=== PATIENT | male | born 1940 | race Caucasian/White ===

== ENCOUNTER 2016-05-25 19:11 | Emergency (ER) | payer MEDICARE ==
[~2016-05-25] VITALS: Ht 170.2 cm; Wt 68.6 kg
[~2016-05-25 19:11] MED LIST: BACT800T5 PO; CELE200 PO; FLON0.053; LORTA5 PO; PROT40TA PO
[2016-05-25 19:14] VITALS: BP 188/86; PULSE 66; RESP 16; TEMP 97.7; O2SAT 97
--- NOTE | 2016-05-25 20:00 | PD ---
Physical Exam Time Seen by Provider: 19:58 Narrative 76 year old male with history significant for 64 kidney stones presents to ED for evaluation of R flank pain, sharp stabbing, 10/10 that began 6 hours ago. Pain is consistent with past stones, but pt has had one in 5 years and this "is pretty bad." Denies fever or chills. No nausea or vomiting, but he is anticipating this. He otherwise has no significant medical history and is not taking any medication. Data Data Last Documented VS Vital Signs Date Time Temp Pulse Resp B/P Pulse Ox O2 Delivery O2 Flow Rate FiO2 05/25/16 19:14 97.7 66 16 188/86 97 MDM Medical Record Reviewed: Yes Supervised Visit with LINO: No Narrative Course 76 year old male presents to ED for evaluation of R flank pain. Appears moderately uncomfortable but without distress. BP is elevated, but overall VSS. Condition: Stable Alis Ramos May 25, 2016 20:00
--- NOTE | 2016-05-25 21:42 | PD ---
HPI Chief Complaint: Flank/Kidney Pain Time Seen by Provider: 21:24 Travel History International Travel<30 days: No Contact w/Intl Traveler<30days: No Traveled to known affect area: No History of Present Illness HPI The patient is a 76 year old female who presents to the [facility] emergency department with a history of right flank pain that he reports began at approximately noon today. The patient reports that it is his usual kidney stone pain. He reports that he has passed 64 kidney stones in the past. His urologist is Dr. Gannon. He last saw his urologist a week ago. He reports that at that time he was told that he had some stones retained up in the right kidney. He reports that in the past he has undergone ureteral stent placement and removal as well as lithotripsy. He denies having any nausea or vomiting associated with this. He has been moving his bowels regularly. His last bowel movement was earlier today. He reports the pain is constant and a 10 out of 10 in severity. He reports the pain is sharp in character and radiates down into the right side of his pelvis. He denies having any dysuria, urinary frequency, or urinary urgency. He denies having any noted hematuria. He denies having any fevers or chills. I review systems, the patient denies any cough, congestion, neck pain, chest pain, shortness of breath, or neurologic symptoms. [facility] Past Medical History Narrative Medical The patient's past medical history is significant for recurrent kidney stones, low back pain, hypothyroid disorder, benign prostatic hypertrophy, allergic rhinitis. Diminished Hearing: No Kidney Stones: Yes (62 TO DATE) Past Surgical History Narrative Surgical The patient's past surgical history is significant for hernia repair, prostate surgery, lithotripsy, ureteral placement and removal, appendectomy, cataract surgery. Abdominal Surgery: Yes (DOUBLE HERNIA) Appendectomy: Yes Genitourinary Surgery: Yes (MULTIPLE CYSTOSCOPES FOR KIDNEY STONES) Social History Alcohol Use: No Tobacco Use: No Substance Use: No Allergies-Medications (Allergen,Severity, Reaction): Coded Allergies: Procaine (Verified Allergy, Intermediate, 05/25/16) Reported Meds & Prescriptions Reported Meds & Active Scripts Active Flomax (Tamsulosin HCl) 0.4 Mg Cap 0.4 Mg PO HS Lortab (Hydrocodone-Acetaminophen) 7.5-325 Mg Tab 1 Tab PO Q4-6H PRN Reported [place] (Hydrocodone-Acetaminophen) 5-325 mg Tab 1 Tab PO Q6H PRN Pantoprazole (Pantoprazole Sodium) 40 Mg Tab 40 Mg PO DAILY Flonase Nasal [place] (Fluticasone Nasal [place]) 50 Mcg/Act [place] 50 Mcg EACH NARE BID Celebrex (Celecoxib) 200 Mg Cap 200 Mg PO BID Narrative Medication Tramadol, Aleve, thyroid supplement, Flonase Review of Systems Except as stated in HPI: all other systems reviewed are Neg General / Constitutional: No: Fever Eyes: No: Visual changes HENT: No: Headaches Cardiovascular: No: Chest Pain or Discomfort Respiratory: No: Shortness of Breath Gastrointestinal: Positive: Abdominal Pain, No: Nausea, Vomiting, Diarrhea, Hematemesis, Hematochezia, Constipation, Changes in Bowel Habits, Indigestion, Loss of Appetite Genitourinary: Positive: Flank Pain (right flank pain), No: Urgency, Frequency , Dysuria Musculoskeletal: No: Pain Skin: No Rash Neurologic: No: Weakness, Focal Abnormalities, Change in Mentation, Slurred Speech, Sensory Disturbance Psychiatric: No: Depression Endocrine: No: Polydipsia Hematologic/Lymphatic: No: Easy Bruising Physical Exam Narrative General: The patient is a well-developed well-nourished male in no acute distress. Head and Neck exam: Head is normocephalic atraumatic. Eyes: EOMI, pupils are equal round and reactive to light. Nose: Midline septum with pink mucous membranes Mouth: Dentition unremarkable. Moist mucus membranes. Posterior oropharynx is not erythematous. No tonsillar hypertrophy. Uvula midline. Airway patent. Neck: No palpable lymphadenopathy. No nuchal rigidity. No thyromegaly. Cardiovascular: Regular rate and rhythm without murmurs, gallops, or rubs. Lungs: Clear to auscultation bilaterally. No wheezes, rhonchi, or rales. Abdomen: Soft, with discomfort on palpation down in the right lower pelvis, no other tenderness on palpation of McBurney's point or other quadrants of the abdomen. No guarding, rebound, or rigidity. Normal bowel sounds are audible. Extremities: No clubbing, cyanosis, or edema. No calf tenderness on palpation. Back: No spinous process tenderness to palpation. Right-sided CVA tenderness on palpation. Neurologic Exam: Grossly nonfocal. Skin Exam: No rash noted. Intact skin that is warm and dry. Data Data Last Documented VS Vital Signs Date Time Temp Pulse Resp B/P Pulse Ox O2 Delivery O2 Flow Rate FiO2 05/25/16 22:00 89 18 163/78 96 05/25/16 19:14 97.7 Orders Complete Blood Count With Diff (05/25/16 21:33) Basic Metabolic Panel (Bmp) (05/25/16 21:33) Urinalysis - C+S If Indicated (05/25/16 21:33) Ct Abd/Pel W/O Iv Contrast (05/25/16 21:33) Iv Access Insert/Monitor (05/25/16 21:33) Ecg Monitoring (05/25/16 21:33) Oximetry (05/25/16 21:33) Sodium Chlorid 0.9% 500 Ml Inj (Ns 500 M (05/25/16 21:45) Morphine Inj (Morphine Inj) (05/25/16 21:45) Ondansetron Inj (Zofran Inj) (05/25/16 21:45) Ketorolac Inj (Toradol Inj) (05/25/16 21:45) Labs Laboratory Tests Test 05/25/16 21:45 White Blood Count 9.1 TH/MM3 Red Blood Count 4.78 MIL/MM3 Hemoglobin 12.9 GM/DL Hematocrit 39.7 % Mean Corpuscular Volume 83.0 FL Mean Corpuscular Hemoglobin 26.9 PG Mean Corpuscular Hemoglobin 32.4 % Concent Red Cell Distribution Width 13.7 % Platelet Count 138 TH/MM3 Mean Platelet Volume 8.4 FL Neutrophils (%) (Auto) 79.0 % Lymphocytes (%) (Auto) 12.1 % Monocytes (%) (Auto) 7.0 % Eosinophils (%) (Auto) 1.1 % Basophils (%) (Auto) 0.8 % Neutrophils # (Auto) 7.2 TH/MM3 Lymphocytes # (Auto) 1.1 TH/MM3 Monocytes # (Auto) 0.6 TH/MM3 Eosinophils # (Auto) 0.1 TH/MM3 Basophils # (Auto) 0.1 TH/MM3 CBC Comment DIFF FINAL Differential Comment Urine Color YELLOW Urine Turbidity CLEAR Urine pH 6.0 Urine Specific [place] 1.022 Urine Protein TRACE mg/dL Urine Glucose (UA) NEG mg/dL Urine Ketones 10 mg/dL Urine Occult Blood MOD Urine Nitrite NEG Urine Bilirubin NEG Urine Urobilinogen LESS THAN 2.0 MG/DL Urine Leukocyte Esterase NEG Urine RBC 107 /hpf Urine WBC 1 /hpf Urine Squamous Epithelial <1 /hpf Cells Urine Mucus FEW /lpf Microscopic Urinalysis Comment CULT NOT INDICATED Sodium Level 138 MEQ/L Potassium Level 3.9 MEQ/L Chloride Level 105 MEQ/L Carbon Dioxide Level 23.7 MEQ/L Anion Gap 9 MEQ/L Blood Urea Nitrogen 24 MG/DL Creatinine 1.44 MG/DL Estimat Glomerular Filtration 47 ML/MIN Rate Random Glucose 112 MG/DL Calcium Level 9.1 MG/DL [facility] Medical Decision Making Medical Screen Exam Complete: Yes Emergency Medical Condition: Yes Medical Record Reviewed: Yes Interpretation(s) Last Impressions Abdomen/Pelvis CT 05/25/162132 Signed Impressions: Service Date/Time: Wednesday, May 25, 2016 21:57 - CONCLUSION: 1. 3 x 4 by 8mm stone in the mid right ureter causing moderate severity obstructive uropathy. 2. There are nonobstructing stones and benign appearing cysts of both kidneys. Please see above. 3. Scattered hypodensities of the liver that are most likely cysts. Misael Oshea MD Differential Diagnosis Ureteral calculi, versus renal colic, versus pyelonephritis, versus appendicitis , versus diverticulitis, versus musculoskeletal strain Narrative Course During the course of the patients emergency department visit, the patients history, examination, and differential diagnosis were reviewed with the patient. The patient had IV access obtained and blood work sent for analysis. The patient was placed on a telemetry monitor with oximetry and blood pressure monitoring. A CT scan of the abdomen and pelvis has been ordered without IV contrast. The patient was initially provided normal saline a 500 mL bolus, Toradol 15 mg IV, morphine 2 mg IV, Zofran 4 mg IV. The patients laboratory studies were reviewed and remarkable for a white count of 9.1, hemoglobin 12.9, platelets 138 with 79 neutrophils, urinalysis shows 10 ketones moderate occult blood 107 RBCs 1 WBC, culture not indicated. Basic metabolic profile is remarkable for a BUN of 24, creatinine 1.44, glucose 112. The patient was given a second normal saline IV fluid bolus. The patient was reexamined and resting comfortably. Radiology studies were reviewed and remarkable for CT scan of the abdomen and pelvis that shows a 3 x 4 x 8 mm stone in the mid right ureter causing moderate severity obstructive uropathy. There are nonobstructing stones and benign appearing cysts of both kidneys, scattered hypodensities of the liver that are most likely cysts. The patient will be discharged home on Flomax, Lortab. The patient was instructed to call his urologist in the morning to discuss close follow-up, as given the size of the stone that is obstructing the patient will likely need lithotripsy or other intervention for removal. The patient is resting comfortably and feels better, is alert and in no distress. The patients results and examination findings were discussed with the patient. The repeat examination is unremarkable and benign. The history, exam, diagnostic testing, and current condition do not suggest any significant pathology to warrant further testing, continued ED treatment, admission, or surgical evaluation at this point. The vital signs have been stable. The patient does not have uncontrollable pain, intractable vomiting, or other significant symptoms. The patient's condition is stable and appropriate for discharge. The patient will pursue further outpatient evaluation with a primary care physician or other designated or consulting physician as indicated in the discharge instructions. The patient expressed understanding and was agreeable with this plan. Diagnosis Primary Impression: Acute right flank pain Additional Impression: Right ureteral calculus Referrals: Abhishek Gannon MD 1 day Patient Instructions: General Instructions, Kidney Stones (ED) Med/Other Pt SpecificInfo: Prescription(s) given Scripts Tamsulosin (Flomax)0.4 Mg Cap0.4 Mg PO HS #14 CAP Ref 0 Prov:Priya Maldonado MD 05/25/16 Hydrocodone-Acetaminophen (Lortab)7.5-325 Mg Tab1 Tab PO Q4-6H PRN (PAIN) #16 TAB Ref 0 Prov:Priya Maldonado MD 05/25/16 Disposition: 01 DISCHARGE HOME Condition: Stable Priya Maldonado MD May 25, 2016 21:42
[2016-05-25] MEDS ORDERED: ONDANSETRON HCL 4 MG/2 ML VIAL IV PUSH ONE (21:45)
[2016-05-25] MEDS ORDERED: MORPHINE SULFATE 4 MG/ML INJ IV PUSH ONE (21:45)
[2016-05-25] MEDS ORDERED: KETOROLAC TROMETHAMINE 30 MG/ML (IVP) VIAL IV PUSH ONE (21:45)
[2016-05-25] MEDS ORDERED: SODIUM CHLORID 0.9% 500 ML INJ 500 ML IV ONE ×2 (21:45→23:15)
[2016-05-25] MEDS ORDERED: NORC5TAB PO (21:59)
[2016-05-25] MEDS ORDERED: FLUT1SPR5 EACH NARE (21:59)
[2016-05-25] MEDS ORDERED: CELE200C PO (21:59)
[2016-05-25] MEDS ORDERED: PANT40TA3 PO (21:59)
[2016-05-25 22:00] VITALS: BP 163/78; PULSE 89; RESP 18; O2SAT 96
--- NOTE | 2016-05-25 22:21 | RADRPT ---
EXAM DATE/TIME: 05/25/2016 21:57 [place] COMPARISON: No previous studies available for comparison. INDICATIONS : Right flank pain. ORAL CONTRAST: No oral contrast ingested. RADIATION DOSE: 6.41 CTDIvol (mGy) MEDICAL HISTORY : Hernia, umbilical. Hernia, inguinal. Renal calculi. SURGICAL HISTORY : Umbilical hernia repair. Appendectomy. ENCOUNTER: Initial ACUITY: 1 day PAIN SCALE: 7/10 LOCATION: Right flank TECHNIQUE: Volumetric scanning of the abdomen and pelvis was performed. Using automated exposure control and ad justment of the mA and/or kV according to patient size, radiation dose was kept as low as reasonably achievable to obtain optimal diagnostic quality images. FINDINGS: LOWER LUNGS: The visualized lower lungs are clear. LIVER: There are hypodensities measuring 18 mm of the left hepatic lobe and 14 mm, 13 mm and 8 mm of the rig ht hepatic lobe. These are most likely cysts. No ductal dilatation. SPLEEN: Normal size without lesion. PANCREAS: Within normal limits. KIDNEYS: A 3 x 4 by 8mm stone is seen in the right ureter at the level of L5. There is moderate hydronephrosis and hydroureter. There is also right perinephric edema. There are faint sub-3 mm nonobstructing ston es scattered throughout the right kidney. A more dominant stone is seen of the right mid zone, measur es about 3 x 6 mm in size. A 3 mm upper pole stone and several 2 mm or less faint stones are seen sca ttered of the left kidney, all nonobstructing. Bilateral renal cysts are present measuring up to 2 cm in size. ADRENAL GLANDS: Within normal limits. VASCULAR: There is no aortic aneurysm. BOWEL/MESENTERY: The stomach, small bowel, and colon demonstrate no acute abnormality. There is no free intraperitone al air or fluid. ABDOMINAL WALL: Within normal limits. RETROPERITONEUM: There is no lymphadenopathy. BLADDER: No wall thickening or mass. REPRODUCTIVE: Within normal limits. INGUINAL: Previous hernia repair. No recurrent hernia demonstrated. MUSCULOSKELETAL: No acute bony abnormality demonstrated. CONCLUSION: 1. 3 x 4 by 8mm stone in the mid right ureter causing moderate severity obstructive uropathy. 2. There are nonobstructing stones and benign appearing cysts of both kidneys. Please see above. 3. Scattered hypodensities of the liver that are most likely cysts. Miasel Oshea MD on May 25, 2016 at 22:14 Board Certified Radiologist. This report was verified electronically.
[2016-05-25 22:26] LABS: AUTOMATED NEUTROPHIL # 7.2 TH/MM3 (1.8-7.7); BASOPHIL # 0.1 TH/MM3 (0-0.2); BASOPHIL % 0.8 % (0.0-2.0); EOSINOPHIL # 0.1 TH/MM3 (0-0.4); EOSINOPHIL % 1.1 % (0.0-4.0); HEMATOCRIT 39.7 % (39.0-51.0); HEMO FLAGS DIFF FINAL; LYMPH % 12.1 % (9.0-44.0); LYMPHOCYTE # 1.1 TH/MM3 (1.0-4.8); MEAN CORPUSCULAR HEMOGLOBIN 26.9 PG (27.0-34.0); MEAN CORPUSCULAR HGB CONC 32.4 % (32.0-36.0); PLATELET COUNT 138 TH/MM3 (150-450); RED BLOOD COUNT 4.78 MIL/MM3 (4.50-5.90); RED CELL DISTRIBUTION WIDTH 13.7 % (11.6-17.2); WHITE BLOOD COUNT 9.1 TH/MM3 (4.0-11.0)
[2016-05-25 22:30] LABS: BLOOD, URINE MOD (NEG); COMMENT (UR) CULT NOT INDICATED; CULTURE IF INDICATED CULT NOT INDICATED; GLUCOSE,URINE NEG (NEG); KETONE, URINE 10 mg/dL (NEG); MUCUS URINE FEW /lpf (OCC); NITRITE,URINE NEG (NEG); SQUAMOUS EPITHELIAL CELL URINE <1 /hpf (0-5); URINE COLOR YELLOW (YELLW/STRAW)
[2016-05-25] MEDS ORDERED: TAMS5CAP PO (22:35)
[2016-05-25] MEDS ORDERED: HYDR-3534 PO (22:35)
[2016-05-25 22:44] LABS: BICARBONATE 23.7 MEQ/L (21.0-32.0); POTASSIUM 3.9 MEQ/L (3.5-5.1)
[2016-05-26] VITALS: BP 174/80; PULSE 70; RESP 14; O2SAT 98
== END 2016-05-26 | disposition home or self-care (01) ==
LOC: NEPC 19:11
DX: R10.9 Unspecified abdominal pain (principal); N20.2 Calculus of kidney with calculus of ureter; N20.1 Calculus of ureter; Z87.442 Personal history of urinary calculi
CPT/HCPCS: 74176; 80048; 81001; 85025; 96361; 96374; 96375; 99284; J1885; J2270; J2405; J7040